=== PATIENT | male | born 1965 | race Caucasian/White ===

== ENCOUNTER → 2022-11-21 10:07 | Outpatient (CLI) | payer OTHER, SELFPAY ==
--- NOTE | ~2022-11-21 | MR_ITS ---
MRI of the left knee Clinical history: Pain Technique: Coronal proton density and proton density-weighted images, sagittal proton-density and T2 fat-sat images, and axial proton-density fat-saturated images were acquired. Findings: Anterior and posterior cruciate ligaments are intact. Medial collateral ligament and the la teral collateral ligament conflux are intact. Popliteus tendon is intact. There is a large radial tear at the posterior root of the medial meniscus. No lateral meniscal tear e vident. Articular cartilage is well preserved in the medial lateral compartments, and along the patella. Ther e is focal moderate chondral lesion central aspect of the femoral trochlea inferiorly. Extensor mechanism is intact. No significant joint effusion or Browning's cyst. Impression: Large radial tear at the posterior root of the medial meniscus. 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 Reviewed, dictated and finalized at [facility]. Impression: Large radial tear at the posterior root of the medial meniscus. 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
== END ==
PROVIDERS: PCP Family Medicine
DX: S83.242A Other tear of medial meniscus, current injury, left knee, initial encounter (principal); X58.XXXA Exposure to other specified factors, initial encounter
CPT/HCPCS: 73721